=== PATIENT | male | born 1995 | race Caucasian/White ===

== ENCOUNTER 2024-06-23 15:22 | Emergency (ER) | payer OTHER ==
[2024-06-23] MEDS ORDERED: Sodium Chloride 0.9% 10 ML Syringe FLUSH PRN (15:44)
[2024-06-23] MEDS ORDERED: Sodium Chloride 0.9% 2.5 ML Syringe FLUSH PRN (15:44)
[2024-06-23] MEDS: Sodium Chloride 0.9% 1,000 ML IV ONE (15:56)
[2024-06-23] MEDS: Famotidine 20 MG/2 ML SDV IVPUSH ONE (15:57)
[2024-06-23] MEDS: Ondansetron 4 MG/2 ML SDV IVPUSH ONE (15:58)
[2024-06-23] MEDS: Morphine 4 MG/ML Syringe IVPUSH ONE ×2 (15:58→17:16)
[2024-06-23 16:48] LABS: BASOPHILS ABSOLUTE AUTO 0.06 K/uL (0.00-0.20); BASOPHILS PERCENT AUTO 0.7 % (0.0-1.0); EOSINOPHILS ABSOLUTE AUTO 0.01 K/uL (0.00-0.45); EOSINOPHILS PERCENT AUTO 0.1 % (0.0-6.0); HEMATOCRIT 45.5 % (42.0-52.0); HEMOGLOBIN 14.9 g/dL (14.0-18.0); IMMATURE GRAN ABSOLUTE AUTO 0.04 K/uL (0.00-0.05); IMMATURE GRAN PERCENT AUTO 0.5 % (0.0-0.4); LYMPHOCYTES ABSOLUTE AUTO 1.26 K/uL (1.00-4.80); LYMPHOCYTES PERCENT AUTO 14.5 % (24.0-44.0); MEAN CORPUSCULAR HGB CONC 32.7 g/dL (32.0-36.0); MEAN CORPUSCULAR VOLUME 88.5 fL (83.0-99.0); MEAN PLATELET VOLUME 9.1 fL (9.4-12.4); MONOCYTES ABSOLUTE AUTO 0.34 K/uL (0.00-0.80); MONOCYTES PERCENT AUTO 3.9 % (0.0-8.0); NEUTROPHILS ABSOLUTE AUTO 6.95 K/uL (1.80-7.70); NEUTROPHILS PERCENT AUTO 80.3 % (41.0-71.0); PLATELET COUNT,PLT 315 K/uL (150-400); RED BLOOD CELL COUNT 5.14 M/uL (4.52-5.90); WHITE BLOOD CELL COUNT,WBC 8.66 K/uL (3.9-11.3)
[2024-06-23 17:08] LABS: A/G RATIO 1.3 (0.9-1.6); ALBUMIN 4.6 g/dL (3.4-5.0); BILIRUBIN TOTAL 0.3 mg/dL (0.2-1.0); CALCIUM 9.7 mg/dL (8.5-10.1); CARBON DIOXIDE,CO2 21.6 mmol/L (21.0-32.0); CREATININE 1.1 mg/dL (0.8-1.3); EST CRCL DRUG DOSING (CG) 107.78 mL/min; POTASSIUM,K 4.2 mmol/L (3.5-5.1); PROTEIN TOTAL,TP 8.2 g/dL (6.4-8.2)
[2024-06-23] MEDS: Iopamidol 755 MG/ML 500 ML Multipack Bottle IVPUSH STA (17:34)
== END 2024-06-23 18:35 | disposition home or self-care (01) ==
LOC: MW.ED 15:22
DX: R11.10 Vomiting, unspecified (principal); Z88.0 Allergy status to penicillin; Z79.899 Other long term (current) drug therapy; Z75.8 Other problems related to medical facilities and other health care
CPT/HCPCS: 36415; 74177; 80053; 83690; 85025; 96361; 96374; 96375; 96376; 99284; J2270; J2405; J3490; J7030; Q9967

== ENCOUNTER 2024-09-08 19:36 | Emergency (ER) | payer SELFPAY ==
[2024-09-08 20:21] LABS: HEMATOCRIT 41.6 % (42.0-52.0); HEMOGLOBIN 14.1 g/dL (14.0-18.0); MEAN CORPUSCULAR HEMOGLOBIN 29.4 pg (28.0-32.0); MEAN CORPUSCULAR HGB CONC 33.9 g/dL (32.0-36.0); MEAN CORPUSCULAR VOLUME 86.8 fL (83.0-99.0); PLATELET COUNT,PLT 317 K/uL (150-400); RED BLOOD CELL COUNT 4.79 M/uL (4.52-5.90); WHITE BLOOD CELL COUNT,WBC 15.18 K/uL (3.9-11.3)
[2024-09-08 20:44] LABS: BLOOD UREA NITROGEN,BUN 27 mg/dL (7.0-18.0); CALCIUM 9.5 mg/dL (8.5-10.1); CHLORIDE,CL 103 mmol/L (98-107); GLUCOSE RANDOM 83 mg/dL (74-106); POTASSIUM,K 3.8 mmol/L (3.5-5.1); SODIUM,NA 140 mmol/L (136-148)
[2024-09-08 20:46] LABS: ESTIMATED GFR 104 mL/min (>60)
[2024-09-08] MEDS: Iopamidol 755 Mg/ML 100 ML Bottle IVPUSH ONE (21:05)
[2024-09-08 21:14] LABS: LYMPHOCYTES ABSOLUTE MAN 2.88 K/uL (1.00-4.80); LYMPHOCYTES PERCENT MAN 19 % (24-44); MONOCYTES ABSOLUTE MAN 1.82 K/uL (0.00-0.80); MONOCYTES PERCENT MAN 12 % (0-8)
[2024-09-08 21:15] LABS: EOSINOPHILS PERCENT MAN 2 % (0-6); SEG NEUTROPHILS ABSOLUTE MAN 10.17 K/uL (1.80-7.70); SEG NEUTROPHILS PERCENT MAN 67 % (41-71)
[2024-09-08] MEDS: Ketorolac 30 MG/ML SDV IVPUSH ONE (21:22)
[2024-09-08] MEDS: ceFAZolin 1 GM in Sodium Chloride 0.9% 50 ML IV ONE (21:31)
[2024-09-08] MEDS: metroNIDAZOLE/Normal Saline 500 MG in Premix Bag 1 BAG IV ONE (23:12)
== END 2024-09-09 00:23 | disposition home or self-care (01) ==
LOC: MW.ED 19:36
DX: L02.01 Cutaneous abscess of face (principal); Z88.0 Allergy status to penicillin
CPT/HCPCS: 36415; 70487; 80048; 85025; 96365; 96367; 96375; 99284; J0690; J1836; J1885; J3490; Q9967

== ENCOUNTER 2024-11-01 10:55 | Emergency (ER) | payer BC ==
[2024-11-01 11:30] LABS: BASOPHILS ABSOLUTE AUTO 0.06 K/uL (0.00-0.20); BASOPHILS PERCENT AUTO 0.5 % (0.0-1.0); EOSINOPHILS ABSOLUTE AUTO 0.21 K/uL (0.00-0.45); EOSINOPHILS PERCENT AUTO 1.9 % (0.0-6.0); HEMATOCRIT 40.6 % (42.0-52.0); HEMOGLOBIN 13.6 g/dL (14.0-18.0); IMMATURE GRAN ABSOLUTE AUTO 0.04 K/uL (0.00-0.05); IMMATURE GRAN PERCENT AUTO 0.4 % (0.0-0.4); LYMPHOCYTES ABSOLUTE AUTO 2.09 K/uL (1.00-4.80); LYMPHOCYTES PERCENT AUTO 18.6 % (24.0-44.0); MEAN CORPUSCULAR HEMOGLOBIN 30.2 pg (28.0-32.0); MEAN CORPUSCULAR HGB CONC 33.5 g/dL (32.0-36.0); MEAN CORPUSCULAR VOLUME 90.2 fL (83.0-99.0); MONOCYTES ABSOLUTE AUTO 1.13 K/uL (0.00-0.80); MONOCYTES PERCENT AUTO 10.1 % (0.0-8.0); NEUTROPHILS PERCENT AUTO 68.5 % (41.0-71.0); PLATELET COUNT,PLT 263 K/uL (150-400); WHITE BLOOD CELL COUNT,WBC 11.23 K/uL (3.9-11.3)
[2024-11-01 12:00] LABS: A/G RATIO 0.9 (0.9-1.6); ALBUMIN 3.4 g/dL (3.4-5.0); BILIRUBIN TOTAL 0.3 mg/dL (0.2-1.0); CALCIUM 9.5 mg/dL (8.5-10.1); CARBON DIOXIDE,CO2 26.7 mmol/L (21.0-32.0); CREATININE 0.9 mg/dL (0.8-1.3); EST CRCL DRUG DOSING (CG) 131.73 mL/min; POTASSIUM,K 4.2 mmol/L (3.5-5.1)
[2024-11-01] MEDS: Iopamidol 755 MG/ML 500 ML Multipack Bottle IVPUSH STA (12:05)
[2024-11-01] MEDS: Sodium Chloride 0.9% 10 ML Syringe FLUSH PRN (13:32)
[2024-11-01] MEDS: Levofloxacin 750 MG Tab PO ONE (13:32)
[2024-11-01] MEDS: Sodium Chloride 0.9% 2.5 ML Syringe FLUSH PRN (13:33)
== END 2024-11-01 13:51 | disposition home or self-care (01) ==
LOC: MW.ED 10:55
DX: L02.01 Cutaneous abscess of face (principal); Z88.0 Allergy status to penicillin; Z75.8 Other problems related to medical facilities and other health care
CPT/HCPCS: 36415; 70487; 80053; 85025; 99284; A9270; Q9967; 99283; J3490

== ENCOUNTER 2024-12-21 08:52 | Emergency (ER) | payer OTHER ==
[2024-12-21] MEDS ORDERED: Sodium Chloride 0.9% 10 ML Syringe FLUSH PRN (08:57)
[2024-12-21] MEDS ORDERED: Sodium Chloride 0.9% 20 ML SDV IV PRN (08:57)
[2024-12-21] MEDS ORDERED: Sodium Chloride 0.9% 2.5 ML Syringe FLUSH PRN (08:57)
[2024-12-21 09:12] LABS: BASOPHILS ABSOLUTE AUTO 0.03 K/uL (0.00-0.20); BASOPHILS PERCENT AUTO 0.5 % (0.0-1.0); EOSINOPHILS ABSOLUTE AUTO 0.16 K/uL (0.00-0.45); EOSINOPHILS PERCENT AUTO 2.8 % (0.0-6.0); HEMATOCRIT 41.6 % (42.0-52.0); HEMOGLOBIN 14.4 g/dL (14.0-18.0); IMMATURE GRAN ABSOLUTE AUTO 0.01 K/uL (0.00-0.05); IMMATURE GRAN PERCENT AUTO 0.2 % (0.0-0.4); LYMPHOCYTES ABSOLUTE AUTO 2.35 K/uL (1.00-4.80); LYMPHOCYTES PERCENT AUTO 41.2 % (24.0-44.0); MEAN CORPUSCULAR HEMOGLOBIN 30.2 pg (28.0-32.0); MEAN CORPUSCULAR HGB CONC 34.6 g/dL (32.0-36.0); MEAN CORPUSCULAR VOLUME 87.2 fL (83.0-99.0); MEAN PLATELET VOLUME 9.2 fL (9.4-12.4); MONOCYTES ABSOLUTE AUTO 0.63 K/uL (0.00-0.80); NEUTROPHILS ABSOLUTE AUTO 2.53 K/uL (1.80-7.70); NEUTROPHILS PERCENT AUTO 44.3 % (41.0-71.0); PLATELET COUNT,PLT 231 K/uL (150-400); RED BLOOD CELL COUNT 4.77 M/uL (4.52-5.90); WHITE BLOOD CELL COUNT,WBC 5.71 K/uL (3.9-11.3)
[2024-12-21 09:21] LABS: INR 1.04 (0.86-1.11)
[2024-12-21] MEDS: Iopamidol 755 MG/ML 500 ML Multipack Bottle IVPUSH STA (09:29)
[2024-12-21] MEDS: Sodium Chloride 0.9% 1,000 ML IV SCH (09:29)
[2024-12-21 09:36] LABS: A/G RATIO 1.2 (0.9-1.6); ALANINE AMINOTRANSFERASE,ALT 43 IU/L (14-63); ALBUMIN 3.7 g/dL (3.4-5.0); ALKALINE PHOSPHATASE 77 U/L (46-116); ASPARTATE AMNIOTRANSFERASE,AST 28 IU/L (15-37); BILIRUBIN TOTAL 0.4 mg/dL (0.2-1.0); BLOOD UREA NITROGEN,BUN 17 mg/dL (7.0-18.0); CALCIUM 9.4 mg/dL (8.5-10.1); CARBON DIOXIDE,CO2 26.7 mmol/L (21.0-32.0); CHLORIDE,CL 104 mmol/L (98-107); CREATININE 1.2 mg/dL (0.8-1.3); GLUCOSE RANDOM 93 mg/dL (74-106); LIPASE 34 U/L (16-77); PROTEIN TOTAL,TP 6.7 g/dL (6.4-8.2); SODIUM,NA 139 mmol/L (136-148)
[2024-12-21 09:37] LABS: ESTIMATED GFR 83 mL/min (>60); ETHANOL BLOOD MEDICAL < 3.0 mg/dL
[2024-12-21 10:08] LABS: APPEARANCE,URINE CLEAR; BILIRUBIN,URINE NEGATIVE (NEGATIVE); COLOR,URINE YELLOW; GLUCOSE,URINE NEGATIVE (NEGATIVE); KETONES,URINE NEGATIVE (NEGATIVE); LEUKOCYTE ESTERASE,URINE NEGATIVE (NEGATIVE); NITRITE,URINE NEGATIVE (NEGATIVE); OCCULT BLOOD,URINE NEGATIVE (NEGATIVE); PH,URINE 7.5 (5.0-8.0); PROTEIN,URINE NEGATIVE (NEGATIVE); UROBILINOGEN,URINE 0.2 EU/dL (<2.0)
[2024-12-21 10:18] LABS: AMPHETAMINES SCREEN, URINE NEGATIVE (CUTOFF=500); BARBITURATE SCREEN,URINE NEGATIVE (CUTOFF=200); BENZODIAZEPINES SCREEN,URINE NEGATIVE (CUTOFF=150); BUPRENORPHINE SCREEN,URINE NEGATIVE (CUTOFF=10); METHADONE SCREEN, URINE NEGATIVE (CUTOFF=200); METHAMPHETAMINES SCREEN, URINE NEGATIVE (CUTOFF=500); OXYCODONE SCREEN,URINE NEGATIVE (CUT0FF=100); PCP SCREEN,URINE NEGATIVE (CUTOFF=25); THC SCREEN,URINE 20 NG/ML NEGATIVE (CUTOFF=50)
== END 2024-12-21 12:59 | disposition left against medical advice (07) ==
LOC: MW.ED 08:52
DX: S06.0X1A Concussion with loss of consciousness of 30 minutes or less, initial encounter (principal); S16.1XXA Strain of muscle, fascia and tendon at neck level, initial encounter; S39.012A Strain of muscle, fascia and tendon of lower back, initial encounter; Z88.0 Allergy status to penicillin; V49.49XA Driver injured in collision with other motor vehicles in traffic accident, initial encounter; Y93.89 Activity, other specified
CPT/HCPCS: 36415; 70450; 71045; 71260; 72125; 72170; 74177; 80053; 80305; 80307; 81003; 83690; 84484; 85025; 85610; 85730; 86850; 86900; 86901; 93005; 96360; 96361; 99285; J7030; Q9967; 72128-26; 72131-26; 99284

== ENCOUNTER 2025-03-21 17:35 | Emergency (ER) | payer MEDICAID | END 2025-03-21 18:23 | disposition left against medical advice (07) | LOC: MW.ED 17:35 | DX: R51.9 Headache, unspecified (principal); Z88.0 Allergy status to penicillin | CPT/HCPCS: 99283 ==

== ENCOUNTER 2025-05-15 15:47 | Emergency (ER) | payer MEDICAID ==
[2025-05-15] MEDS: Ondansetron 4 MG/2 ML SDV IVPUSH ONE ×2 (16:38→21:57)
[2025-05-15 16:45] LABS: BASOPHILS ABSOLUTE AUTO 0.04 K/uL (0.00-0.20); BASOPHILS PERCENT AUTO 0.3 % (0.0-1.0); EOSINOPHILS ABSOLUTE AUTO 0.00 K/uL (0.00-0.45); EOSINOPHILS PERCENT AUTO 0.0 % (0.0-6.0); IMMATURE GRAN ABSOLUTE AUTO 0.04 K/uL (0.00-0.05); IMMATURE GRAN PERCENT AUTO 0.3 % (0.0-0.4); LYMPHOCYTES ABSOLUTE AUTO 0.84 K/uL (1.00-4.80); LYMPHOCYTES PERCENT AUTO 6.8 % (24.0-44.0); MEAN PLATELET VOLUME 8.5 fL (9.4-12.4); MONOCYTES ABSOLUTE AUTO 1.39 K/uL (0.00-0.80); MONOCYTES PERCENT AUTO 11.2 % (0.0-8.0); NEUTROPHILS ABSOLUTE AUTO 10.13 K/uL (1.80-7.70); NEUTROPHILS PERCENT AUTO 81.4 % (41.0-71.0); NRBC ABSOLUTE 0.00 K/uL (0.00-0.02); NRBC PERCENT 0.0 /100WBC (0.0-0.2); PLATELET COUNT,PLT 275 K/uL (150-400); RED BLOOD CELL COUNT 4.97 M/uL (4.52-5.90); WHITE BLOOD CELL COUNT,WBC 12.44 K/uL (3.9-11.3)
[2025-05-15 17:00] LABS: INR 1.02 (0.86-1.11)
[2025-05-15 17:14] LABS: A/G RATIO 1.1 (0.9-1.6); ALANINE AMINOTRANSFERASE,ALT 54 IU/L (14-63); ASPARTATE AMNIOTRANSFERASE,AST 61 IU/L (15-37); BILIRUBIN TOTAL 1.0 mg/dL (0.2-1.0); BLOOD UREA NITROGEN,BUN 21 mg/dL (7.0-18.0); CARBON DIOXIDE,CO2 28.6 mmol/L (21.0-32.0); CHLORIDE,CL 93 mmol/L (98-107); CREATININE 1.3 mg/dL (0.8-1.3); EST CRCL DRUG DOSING (CG) 90.37 mL/min; ESTIMATED GFR 75 mL/min (>60); ETHANOL BLOOD MEDICAL <3 mg/dL; GLUCOSE RANDOM 121 mg/dL (74-106); POTASSIUM,K 3.6 mmol/L (3.5-5.1); PROTEIN TOTAL,TP 7.6 g/dL (6.4-8.2); SODIUM,NA 136 mmol/L (136-148)
[2025-05-15] MEDS ORDERED: droPERidol 2.5 MG/ML SDV IVPUSH ONE (17:21)
[2025-05-15] MEDS: droPERidol 2.5 MG/ML SDV IVPUSH ONE (17:42)
[2025-05-15 20:20] LABS: APPEARANCE,URINE CLEAR; GLUCOSE,URINE NEGATIVE (NEGATIVE); OCCULT BLOOD,URINE TRACE-INTACT (NEGATIVE)
[2025-05-15] MEDS: Iopamidol 755 Mg/ML 100 ML Bottle IVPUSH ONE (20:24)
[2025-05-15 20:29] LABS: AMPHETAMINES SCREEN, URINE NEGATIVE (CUTOFF=500); BUPRENORPHINE SCREEN,URINE NEGATIVE (CUTOFF=10); EPITHELIAL CELLS,URINE RARE (NONE-FEW); METHADONE SCREEN, URINE NEGATIVE (CUTOFF=200); METHAMPHETAMINES SCREEN, URINE NEGATIVE (CUTOFF=500); OXYCODONE SCREEN,URINE NEGATIVE (CUT0FF=100); PCP SCREEN,URINE NEGATIVE (CUTOFF=25); THC SCREEN,URINE 20 NG/ML NEGATIVE (CUTOFF=50)
== END 2025-05-15 22:06 | disposition home or self-care (01) ==
LOC: MW.ED 15:47
DX: K52.9 Noninfective gastroenteritis and colitis, unspecified (principal); K76.0 Fatty (change of) liver, not elsewhere classified; Z98.84 Bariatric surgery status; Z87.820 Personal history of traumatic brain injury; Z90.01 Acquired absence of eye; Z88.0 Allergy status to penicillin
CPT/HCPCS: 36415; 70450; 74177; 80053; 80305; 80307; 81001; 83690; 83735; 85025; 85610; 85652; 86140; 96361; 96374; 96375; 96376; 99284; J1790; J2405; J2765; J7030; Q9967; 93010

== ENCOUNTER 2025-06-13 21:05 | Emergency (ER) | payer MEDICAID ==
[2025-06-13] MEDS: Tetracaine HCl/PF 0.5% 4 ML Bottle EYEBOTH ONE (21:22)
== END 2025-06-13 22:10 | disposition home or self-care (01) ==
LOC: MW.ED 21:05
DX: T15.92XA Foreign body on external eye, part unspecified, left eye, initial encounter (principal); S05.02XA Injury of conjunctiva and corneal abrasion without foreign body, left eye, initial encounter; Z88.0 Allergy status to penicillin; X58.XXXA Exposure to other specified factors, initial encounter
CPT/HCPCS: 65220; 99283; A9270; J3490

== ENCOUNTER 2025-06-18 02:43 | Emergency (ER) | payer MEDICAID | END 2025-06-18 03:10 | LOC: MW.ED 02:43 | DX: Z02.89 Encounter for other administrative examinations (principal); S50.812A Abrasion of left forearm, initial encounter; Z88.0 Allergy status to penicillin; Z75.3 Unavailability and inaccessibility of health-care facilities; Y04.8XXA Assault by other bodily force, initial encounter | CPT/HCPCS: 99284 ==